=== PATIENT | female | born 1985 | race Hispanic/Latino ===

== ENCOUNTER 2017-06-27 17:52 | Emergency (ER) | payer BC ==
[~2017-06-27 17:52] MED LIST: Iopamidol 370 76% 100 ML VIAL ONE
[2017-06-27 18:31] LABS: #Eosinphils 0.2 thou/uL (0.0-0.7); #Lymphocytes 1.8 thou/uL (1.20-3.40); #Monocytes 0.5 thou/uL (0.11-0.59); %Basophils 0.3 % (0.0-1.0); %Eosinophils 2.9 % (0.0-10.0); %Lymphocytes 23.4 % (21.0-51.0); %Monocytes 6.9 % (0.0-10.0); Hematocrit 37.5 % (36.0-47.0); Red Blood Cell (RBC) Count 4.51 mill/uL (4.20-5.40); White Blood Cell (WBC) Count 7.5 thou/uL (4.8-10.8)
[2017-06-27] MEDS ORDERED: Ondansetron HCl/PF 4 MG/2 ML Vial ONE ×2 (18:43→19:48)
[2017-06-27 18:46] LABS: ALT (SGPT) 15 U/L (8-55); AST (SGOT) 12 U/L (5-34); Alkaline Phosphatase 54 U/L (40-150); Anion Gap 15 mmol/L (10-20); BUN (Urea Nitrogen) 17 mg/dL (7.0-18.7); Bilirubin, Total 0.3 mg/dL (0.2-1.2); Calc. Creatinine Clearance 0 mL/min (70-130); Calcium 8.8 mg/dL (7.8-10.44); Carbon Dioxide 24 mmol/L (22-29); Chloride 104 mmol/L (98-107); Estimated GFR-MDRD Greater than 90; Globulin 2.9 g/dL (2.4-3.5); Lipase 23 U/L (8-78); Protein, Total 6.7 g/dL (6.0-8.3)
[2017-06-27 19:44] LABS: Bilirubin Negative (Negative); Blood, Urine Trace (Negative); Glucose, Urine (Dipstick) Negative (Negative); Ketone, Urine Negative (Negative); Nitrite Negative (Negative); Protein, Urine (Dipstick) Negative (Neg-Trace); Urobilinogen 0.2 mg/dL (0.2-1.0)
--- NOTE | 2017-06-27 19:48 | CT ---
CT ABDOMEN AND PELVIS WITH IV CONTRAST 06/27/17 HISTORY: Abdomen pain. Fever. FINDINGS: No comparison. The lung bases are clear. The liver, spleen, kidneys, adrenal glands, and pancreas hav e a normal CT appearance. Physiologic amount of free fluid is present within the cul-de-sac. Physiolo gic amount of free fluid is present within the cul-de-sac. Curvilinear radiodensity at each adnexa li andra represents sterilization device. Urinary bladder is unremarkable. Heterogeneity associated with the right side of the myometrium is likely related to a small uterine fibroid. Lack of oral contrast limits evaluation of the bowel. There is no evidence of obstruction. IMPRESSION: No significant abnormalities are demonstrated. POS: [facility]
[2017-06-27 19:49] LABS: Bacteria/HPF Rare-Few HPF (None Seen)
== END 2017-06-27 20:12 | disposition home or self-care (01) ==
LOC: SCSER 17:52
DX: R11.2 Nausea with vomiting, unspecified (principal); I10 Essential (primary) hypertension; Z79.899 Other long term (current) drug therapy
CPT/HCPCS: 74177; 80053; 81003; 81015; 83690; 84703; 85025; 96361; 96374; 96376; J2405

== ENCOUNTER 2024-08-17 07:56 | Outpatient (CLI) | payer BC | END 2024-08-17 07:57 | disposition home or self-care (01) | LOC: BICMAMMO 07:56 | PROVIDERS: ATTEND Family Medicine | DX: N64.4 Mastodynia (principal) | CPT/HCPCS: 77066; G0279 ==